=== PATIENT | female | born 2000 | race Caucasian/White ===

== ENCOUNTER → 2021-02-18 13:29 | Outpatient (CLI) | payer MEDICARE, SELFPAY | PROVIDERS: Visit Provider Family Medicine | DX: Z23 Encounter for immunization (principal) ==

== ENCOUNTER 2024-07-27 13:48 | Emergency (ER) | payer BC, SELFPAY ==
[2024-07-27 13:49] VITALS: BP 122/88; PULSE 67; RESP 14; TEMP 36.6; O2SAT 100; BMI 23.3
--- NOTE | 2024-07-27 14:29 | EX.ED.DYSGE1 ---
HPI History of Present Illness Chief Complaint: Bite Detail of Chief Complaint: Cat bite to right hand Informant: patient Narrative Narrative: Patient presents to the emergency department with complaint of a cat bite to the right hand. Patient states that she was petting a cat in the street that had a collar when the cat bit her on the right hand and scratched her. Injury occurred yesterday. Patient went to urgent care. She was called and on antibiotic for the cat bite and they discussed rabies and it was felt she was low risk and they were going to do shared decision making however patient would like the peace of mind of having the rabies vaccination. She was sent to the ER because they did not have the rabies vaccinations and immunoglobulin at the urgent care. PFSH PFSH Medical History no medical history Allergy/AdvReac Type Severity Reaction Status Date / Time No Known Allergies Allergy Verified 07/27/24 13:53 Surgical History (Updated 07/27/24 @ 14:05 by Daphnie Flores) History of tonsillectomy Social History Smoking Status: Never smoker ROS ROS ED ROS Narrative Cat bite Review of Systems ROS Unobtainable: other Constitutional Constitutional ED: Reports lethargy; Denies chills, fever(s), sweats or weight loss Eyes Eyes: Denies blurry vision, change in vision or diplopia ENT ENT ED: Denies rhinorrhea or sore throat Cardiovascular Cardiovascular: Denies chest pain, orthopnea or racing heartbeat Respiratory/Chest Respiratory/Chest: Denies cough, dyspnea, dyspnea on exertion, orthopnea or sputum Gastrointestinal Gastrointestinal: Denies abdominal pain, diarrhea, nausea or vomiting Genitourinary Genitourinary ED: Denies dysuria, hematuria or urinary frequency Musculoskeletal Musculoskeletal: Reports other Details: Cat bite to right hand ; Denies arthralgias, back pain, myalgias or neck pain Integumentary Denies abscess, Abrasions or rash Neurologic Neurologic: Denies headache(s) or weakness Psychiatric Psychiatric: Denies anxiety, depression or suicidal thoughts Endocrine Endocrinology: Denies polydipsia, polyphagia or polyuria Hematologic/Lymphatic Hematologic/Lymphatic: Denies easy bleeding, easy bruising or lymphadenopathy Allergic/Immunologic Allergic/Immunologic ED: Denies mouth swelling, tongue swelling or urticaria EXAM Physical Exam Const Vital Signs: 07/27/24 13:49 Temperature 97.9 F Temperature Source Temporal Pulse Rate 67 Respiratory Rate 14 Blood Pressure 122/88 H Blood Pressure Mean 99 Pulse Ox 100 Oxygen Delivery Method Room Air Positive well nourished and well developed General Appearance ED: well developed and NAD HEENT Reports TM's clear and moist mucous membranes normocephalic and atraumatic; Negative for trauma or tenderness Tympanic Membrane ED: Yes TM's clear Eyes PERRL and EOMs intact bilaterally General Eye ED: Negative for pale conjunctiva or scleral icterus Neck no lymphadenopathy, supple and no JVD General: Negative for tenderness Chest Wall inspection of chest normal and palpation of chest normal Chest: Negative for tenderness Resp normal respiratory effort and clear to auscultation bilaterally Effort and Inspection: Negative for respiratory distress or pain with movement Auscultation: Negative for rhonchi, wheezes or diminished lung sounds Cardio regular rate, regular rhythm, S1 normal heart sound, S2 normal heart sound and no murmurs Peripheral Pulses: pulses 2+ throughout GI normal to inspection, nondistended, normoactive bowel sounds, soft to palpation, non-tender, non-distended and no masses Back/Spine no CVA tenderness and no thoracic nor lumbar tenderness Extremity Extremity Narrative: Right hand-patient has a linear abrasion over the dorsal lateral aspect of the right hand measuring approximately 4 cm in length. No deep punctures noted. There is no evidence of cellulitis. She is neurovascularly intact distally. She has normal range of motion flexion extension of all digits. General Extremety ED: Negative for edema General Extremity: Negative for edema Neuro oriented x3, CN's II-XII intact bilaterally, no sensory deficits noted and gait normal Sensorium / Orientation: awake, alert, oriented to person, oriented to place and oriented to time Motor Exam: strength 5/5 throughout and strength abnormal Psych mental status grossly normal Skin no rashes or lesions noted and no wounds MDM MDM MDM Narrative Medical decision making narrative: Patient presents for a cat bite to the right hand. 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 Will treat patient with tetanus booster and will treat with rabies immunoglobulin and rabies vaccine. Discharge Plan Triage Chief Complaint: Bite ED Provider: Leon Turner Dx/Rx/DC Orders Clinical Impression: Cat bite, Rabies, need for prophylactic vaccination against Instructions: Rabies Vaccine, ED Cat Bite Primary Care Provider: Care Physician,No Primary Referrals: Matt Park MD [Med Staff - Active Staff] - 3-5 Days Care Physician,No Primary [Primary Care Provider] - Print Language: Indonesian Disposition Disposition: Home, Self Care
[2024-07-27] MEDS: Diphth,Pertuss(Acell),Tet Vac 0.5 ML Vial IM (14:50)
[2024-07-27] MEDS: Rabies Vaccine,Human Diploid 2.5 UNITS Vial IM (14:50)
[2024-07-27] MEDS: Rabies Immune Globulin/PF 300 UNIT/ML, 5 ML VIAL 1230 UNIT IM (15:30)
[2024-07-27 15:43] VITALS: BP 120/78; PULSE 68; RESP 16; TEMP 36.3; O2SAT 99
--- NOTE | 2024-07-27 15:51 | ED.RN ---
AFTER THE ADMIN OF THE GLOBULIN AND RABIES VACCINE, PT EXPRESSES TO THIS NURSE SHE WILL BE OUT OF STATE FOR HER DAY 7 SHOT. THIS NURSE CALLED PHARMACY TO SEE IF THEY WOULD ALLOW FILLING OF THE MED OR ANY DEVIATION TO THE DATES. THIS NURSE SPOKE WITH FIONA, WHO SPOKE WITH PHARMACIST. DIRECTIONS THIS NURSE WAS GIVEN BY PHONE FROM PHARMACY WAS TO HAVE PT DO DAY 7 VACCINE WHEN SHE RETURNS (08/09/24) AND THEN FOLLOW 7 MORE DAYS OUT FOR DAY 14 WHICH WOULD FALL ON 08/16/24. THIS NURSE UPDATED INFO ON THE PAPERWORK IN TRIAGE WITH A NOTE TO SEE NURSES NOTES.
== END 2024-07-27 15:54 | disposition home or self-care (01) ==
LOC: ED 14:40
PROVIDERS: Emergency Provider Emergency Medicine; Visit Provider Emergency Medicine
DX: S60.571A Other superficial bite of hand of right hand, initial encounter (principal); W55.01XA Bitten by cat, initial encounter; S60.511A Abrasion of right hand, initial encounter; W55.03XA Scratched by cat, initial encounter; Z20.3 Contact with and (suspected) exposure to rabies; Z23 Encounter for immunization
CPT/HCPCS: 90675; 90715; 96372; 99282; 90375

== ENCOUNTER 2024-07-31 13:23 | Outpatient (CLI) | payer BC, SELFPAY ==
[2024-07-31 13:24] VITALS: BP 103/67; PULSE 69; RESP 18; TEMP 36.4; O2SAT 100; BMI 23.4
[2024-07-31] MEDS: Rabies Vaccine,Human Diploid 2.5 UNITS Vial IM (14:22)
[2024-07-31 14:37] VITALS: BP 103/67; PULSE 69; RESP 18; O2SAT 100; BMI 23.4
== END 2024-07-31 14:40 | disposition home or self-care (01) ==
LOC: ED 15:29
PROVIDERS: Referring Provider Emergency Medicine; Visit Provider Emergency Medicine
DX: Z20.3 Contact with and (suspected) exposure to rabies (principal); Z23 Encounter for immunization
CPT/HCPCS: 90675; 96372

== ENCOUNTER 2024-08-08 13:30 | Outpatient (CLI) | payer BC, SELFPAY ==
[2024-08-08 13:31] VITALS: BP 113/67; PULSE 75; RESP 18; TEMP 36.4; O2SAT 100; BMI 23.6
[2024-08-08] MEDS: Rabies Vaccine,Human Diploid 2.5 UNITS Vial IM (14:30)
[2024-08-08 14:32] VITALS: BP 113/67; BP 124/80; PULSE 74; PULSE 75; RESP 15; RESP 18; TEMP 36.4; TEMP 36.6; O2SAT 100; O2SAT 99; BMI 23.6
== END 2024-08-08 14:45 | disposition home or self-care (01) ==
PROVIDERS: Referring Provider Emergency Medicine; Visit Provider Emergency Medicine
DX: Z23 Encounter for immunization (principal)
CPT/HCPCS: 90675

== ENCOUNTER 2024-08-16 17:35 | Outpatient (CLI) | payer BC, SELFPAY ==
[2024-08-16] MEDS: Rabies Vaccine,Human Diploid 2.5 UNITS Vial IM (17:57)
== END 2024-08-16 18:22 | disposition home or self-care (01) ==
DX: Z20.3 Contact with and (suspected) exposure to rabies (principal); Z23 Encounter for immunization
CPT/HCPCS: 90675; 96372